=== PATIENT | female | born 2000 | race Two or more races ===

== ENCOUNTER 2025-02-28 06:45 | Inpatient (IN) | payer MEDICAID, OTHER ==
[~2025-02-28] VITALS: Ht 165.1 cm; Wt 83.9 kg
[2025-02-28] MEDS ORDERED: BUTORPHANOL TARTRATE 2 MG/1 ML VIAL IV PRN ×2 (07:30)
[2025-02-28] MEDS ORDERED: LIDOCAINE 2%HCL (LOCAL ANESTH.) INJ 20ML MDV IJ PRN (07:30)
[2025-02-28] MEDS ORDERED: ACETAMINOPHEN 325 MG TAB PO PRN ×2 (08:00→16:30)
[2025-02-28 08:11] LABS: Hemoglobin 12.3 g/dL (12.2-16.2); Nucleated Red Blood Cells % 0.0 %
[2025-02-28 08:13] LABS: Hematocrit 35.2 % (36.0-46.0); Mean Corpuscular Hemoglobin 34.5 pg (28.0-32.0); Mean Corpuscular Volume 98.4 fL (80.0-100.0)
--- NOTE | 2025-02-28 08:21 | DVH ---
LIMITED OB ULTRASOUND > 14 WKS: HISTORY: srom TECHNIQUE: Multiple real-time grayscale images of the gravid uterus with duplex Doppler color flow an d M-mode spectral analysis. TRANSDUCER: transabdominal FINDINGS: IUP single live fetus at 38 weeks 4 days based on composite averages of the BPD, head circumference, abdominal circumference and femur length Estimated weight 3657 grams heart rate 145 beats per minute SOMMER 5.9 cm Cervix not well visualized. Cephalic Presentation Anterior Placenta without previa or abruption. IMPRESSION: IUP single live fetus at 38 weeks 4 days AUA corresponding.
[2025-02-28 08:23] LABS: INR 0.91 (0.9-1.15); Partial Thromboplastin Time 25.9 SEC (24.5-34.5); Prothrombin Time 9.7 sec (9.3-11.8)
[2025-02-28 08:32] LABS: Alanine Aminotransferase 16 U/L (7-40); Albumin 3.6 g/dL (3.2-4.8); Anion Gap 11 (5-15); BUN/Creatinine Ratio 14.0 (10.0-20.0); Calcium 8.9 mg/dL (8.7-10.4); Carbon Dioxide 23 mmol/L (20-31); Chloride 106 mmol/L (98-107); Sodium 140 mmol/L (136-145); Total Protein 6.3 g/dL (5.7-8.2)
[2025-02-28 08:33] LABS: Barbiturate Scree,Urine Neg (NEGATIVE); Opiate Scree,Urine Neg (NEGATIVE); Phencyclidine Screen, Urine Neg (NEGATIVE)
[2025-02-28 08:33] LABS: Bilirubin, Total 0.4 mg/dL (0.2-1.0)
[2025-02-28 08:34] LABS: Alkaline Phosphatase 193 U/L (46-116); Blood Urea Nitrogen 8 mg/dL (9-23); Glucose 109 mg/dL (74-106); Potassium 3.4 mmol/L (3.5-5.1)
[2025-02-28 08:34] LABS: Amphetamine Screen, Urine Neg (NEGATIVE); Benzodiazephine Screen, Urine Neg (NEGATIVE); Cannabinoid Screen, Urine Neg (NEGATIVE); Cocaine Screen, Urine Neg (NEGATIVE)
[2025-02-28 08:36] LABS: Urine Protein, UAD TRACE (Negative); Urine WBC Clumps PRESENT /hpf (None Seen)
[2025-02-28] MEDS: PHISODERM TOP SOLN 240ML BTL TOP PRN (08:46)
[2025-02-28] MEDS: WITCH HAZEL-GLYCERIN PAD TOP PRN (08:46)
[2025-02-28] MEDS: DERMOPLAST 60ML BOTTLE TOP PRN (08:46)
[2025-02-28] MEDS: PENICILLIN G POT 5MIL/D5 50ML 50 ML IV ONE (08:48)
[2025-02-28] MEDS: LACTATED RINGER'S 1,000 ML IV SCH (08:48)
[2025-02-28] MEDS ORDERED: NALOXONE HCL 0.4 MG/ML VIAL IV ONE (09:30)
--- NOTE | 2025-02-28 12:06 | DVHHP2 ---
OB CC & HPI Date Date of Admission: Feb 28, 2025 Patient Identification: : 1 Para: 0 EDC: Mar 01, 2025 EGA: 39 6/7 Chief Complaints: Reason for admission: active labor Other reason for admission: Labor ruptured membranes came from [place] yesterday no care records Admission Nurse Assessment Rev: Yes Past Medical History Cardiac: No pertinent Hx Pulmonary: No pertinent Hx Central Nervous System: No pertinent Hx GI: No pertinent Hx Hemotology/Oncology: No pertinent Hx Hepatobiliary: No pertinent Hx Psychiatric: No pertinent Hx Musculoskeletal: No pertinent Hx Rheumotologic: No pertinent Hx Infectious Disease: No peritnent Hx ENT: No pertinent Hx Renal/: No pertinent Hx Endocrine: No pertinent Hx Dermatology: No pertinent Hx OB History OB History Care: None Ultrasounds: No ultrasounds Obstetrical Complications: None Medical Complications: None Allergies: Coded Allergies: NO KNOWN ALLERGIES (Unverified , 02/28/25) Current Medications Current Medications Medications (Trade) Dose Ordered Sig/Shavon Route PRN Reason Start Time Stop Time Status Last Admin Lactated Ringer's 1,000 ml @ 125 mls/hr Q8H IV 02/28/25 07:30 02/28/25 10:06 Witch Cortney (Tucks) 1 pad PRN PRN TOP PERINEAL AREA DISCOMFORT 02/28/25 07:30 02/28/25 08:46 Sodium Lauryl Sulfate (Phisoderm) 240 ml PRN PRN TOP PERINEAL AREA DISCOMFORT 02/28/25 07:30 02/28/25 08:46 Benzocaine (Dermoplast) 1 applic PRN PRN TOP PERINEAL AREA DISCOMFORT 02/28/25 07:30 02/28/25 08:46 Butorphanol Tartrate (Stadol Injection) 1 mg Q4HPRN PRN IV MODERATE PAIN (4-6 PAIN SCALE) 02/28/25 07:30 Hold Butorphanol Tartrate (Stadol Injection) 2 mg Q4HPRN PRN IV SEVERE PAIN (7-10 PAIN SCALE) 02/28/25 07:30 Lidocaine HCl (Xylocaine) 20 ml ONCE PRN IJ PERINEAL AREA DISCOMFORT 02/28/25 07:30 Acetaminophen (Tylenol Tablet) 650 mg Q4HP PRN PO MODERATE PAIN (4-6 PAIN SCALE) 02/28/25 08:00 Penicillin G Potassium [id number] units/Dextrose 50 ml @ 100 mls/hr Q4H IV 02/28/25 12:30 Family & Social History Family/Social History Blood Type: A+ Rubella: immune RPR/VDRL: Unknown GBS Status: Unknown HBsAG: Unknown Review of Systems Constitutional: No symptom reported Ears, Nose, & Throat: No symptom reported Eyes: No symptom reported Pulmonary/Respiratory: No symptom reported Cardiovascular: No symptom reported Gastrointestinal: No symptom reported Genitourinary: No symptom reported Musculoskeletal: No symptom reported Skin: No symptom reported Psychiatric: No symptom reported Endocrine: No symptom reported Hemotologic/Lymphatic: No symptom reported OB Admission Exam Physical Exam HEENT: TMs Normal, Fontanelles Normal, Nasal Mucosa Normal, Eyes non-injected, Oropharynx Normal, PERRLA, Moist Membranes, EOMI Heart: Rhythm Normal Lungs: Clear Abdomen: Non tender Extremities: Normal Reflexes: Normal Cervical Dilatation: 8cm Effacement: 100% Membranes: Ruptured Amniotic Fluid: Clear Heart Rate: 130's Accelerations: Accelerations Present Decelerations: No Decelerations Short Term Variability: Present Seed Sales Manager Variability: Average (6-25) Contractions on Admission: < 5 Minutes Apart Intensity: Moderate OB Plan Plan Admitting Diagnosis: SROM 39 + weeks , New from [place] 02/27 Plan: Expectant Management LA GOTTLIEB DO Feb 28, 2025 12:06
--- NOTE | 2025-02-28 12:09 | LDN2 ---
Labor and Delivery Note Date 02/28/25 Age 25 1 Para 0 AB 0 EDC 03/01/2025 EGA 39+ Diagnosis SROM active labor Vaginal Delivery: VTX Vacuum Assisted: No Placenta: Spontaneous Sex: Male Weight pending Apgars 01/29 Nuchal Cord Transected: No Amniotic Fluid: Clear Anesthesia Epidural Episiotomy: No (1st degree ant and posterior vagina) Extension: Yes Repaired with 2-0 Chromic EBL 300cc Labs Laboratory Tests 02/28/25 07:42: Hepatitis B Surface Antigen Negative, HIV (1&2) Antibody Negative, Rubella Antibody Positive Blood Bank 02/28/25 07:42: Blood Type A POSITIVE Complications none Conditions stable Blocker And Sewer none present Visit Coding OBGYN Date of Service: Feb 28, 2025 Billing Provider: LA GOTTLIEB DO DIRECTOR OF HOUSING Common Visit Codes: 05599-[id number] OBS CARE (HIGH) DIRECTOR OF HOUSING Procedure Codes: 77973-NYY DEL INCLUDING LA GOTTLIEB DO Feb 28, 2025 12:09
[2025-02-28] MEDS ORDERED: PENICILLIN G POTASSIUM 2,500,000 UNITS in D5W 5% 50 ML IV SCH (12:30)
[2025-02-28] MEDS ORDERED: ONDANSETRON ODT 4 MG TAB PO PRN (16:30)
[2025-02-28 18:45] VITALS: BP 112/65; PULSE 83; RESP 16; TEMP 99
[2025-02-28] MEDS: ROPIVACAINE HCL 100 ML ONE (19:02)
[2025-02-28] MEDS: LACT. RINGERS/OXYTOCIN 20UNITS 1,000 ML IV ONE (19:04)
[2025-02-28] MEDS: LIDOCAINE 2%HCL (LOCAL ANESTH.) INJ 20ML MDV ONE (19:04)
[2025-02-28] MEDS: LACT. RINGERS/OXYTOCIN 20UNITS 500 ML IV ONE ×2 (19:21→19:22)
[2025-02-28] MEDS: LIDOCAINE HCL 2 %PF INJ 10ML AMP IJ ONE (19:42)
[2025-02-28 23:00] VITALS: BP 118/72; PULSE 74; RESP 18; TEMP 98.7
[2025-03-01] MEDS: IBUPROFEN 600 MG TAB PO PRN (02:30)
[2025-03-01 02:31] VITALS: BP 106/59; PULSE 67; RESP 16; TEMP 97.8
--- NOTE | 2025-03-01 05:29 | DVHPN2 ---
Chief Complaints Patient reports: No new complaints, Feels better Nursing reports: No new complaints, No abdominal pain, No chest pain, No dizziness, No cough Objective Vitals Vital Signs Date Time Temp Pulse Resp B/P (MAP) Pulse Ox O2 Delivery O2 Flow Rate FiO2 03/01/25 02:31 97.8 67 16 106/59 (75) 97.8 02/28/25 18:45 Room Air Medications Current Medications Medications (Trade) Dose Ordered Sig/Shavon Route PRN Reason Start Time Stop Time Status Last Admin Acetaminophen (Tylenol Tablet) 650 mg Q4HP PRN PO MILD PAIN (1-3 PAIN SCALE) 02/28/25 16:30 Benzocaine (Dermoplast) 1 applic PRN PRN TOP PERINEAL AREA DISCOMFORT 02/28/25 07:30 02/28/25 08:46 Ibuprofen (Motrin Tablet) 600 mg Q6HP PRN PO MODERATE PAIN (4-6 PAIN SCALE) 02/28/25 16:30 03/01/25 02:30 Lactated Ringer's 1,000 ml @ 125 mls/hr Q8H IV 02/28/25 07:30 02/28/25 10:06 Lidocaine HCl (Xylocaine) 20 ml ONCE PRN IJ PERINEAL AREA DISCOMFORT 02/28/25 07:30 Ondansetron HCl (Zofran Po) 4 mg Q4HPRN PRN PO NAUSEA / VOMITING 02/28/25 16:30 Sodium Lauryl Sulfate (Phisoderm) 240 ml PRN PRN TOP PERINEAL AREA DISCOMFORT 02/28/25 07:30 02/28/25 08:46 Witch Cortney (Tucks) 1 pad PRN PRN TOP PERINEAL AREA DISCOMFORT 02/28/25 07:30 02/28/25 08:46 General: Normal Neck: Normal Lungs: Normal Cardiovascular: Normal Abdominal: Normal (uterus firm 12 week size) Musculoskeletal: Normal Extremities: Normal Skin: Normal Neurological: Normal Studies Laboratory Tests 02/28/25 07:42 Test 02/28/25 07:42 Range/Units Serum Glucose 109 H 74-106 mg/dL Ass/Plan Assessment PPD #1 stable improved Plan advance care LA GOTTLIEB DO Mar 01, 2025 05:29
[2025-03-01 07:17] VITALS: BP 101/56; PULSE 67; RESP 16; TEMP 97.9; O2SAT 97
[2025-03-01 11:02] VITALS: BP 107/59; PULSE 80; RESP 16; TEMP 98.3; O2SAT 97
[2025-03-01 15:17] VITALS: BP 108/57; PULSE 73; RESP 16; TEMP 98.6; O2SAT 98
[2025-03-01 18:53] VITALS: BP 119/59; PULSE 77; RESP 16; TEMP 98.5; O2SAT 98
[2025-03-01 23:08] VITALS: BP 107/58; PULSE 62; RESP 16; TEMP 98.5; O2SAT 98
[2025-03-02 03:26] VITALS: BP 99/57; PULSE 68; RESP 16; TEMP 98.5; O2SAT 98
--- NOTE | 2025-03-02 03:46 | DVHDS2 ---
Obstetrics Discharge Summary Obstetrics Discharge Summary Date of Admission: Feb 28, 2025 Date of Discharge: Mar 02, 2025 Reason For Admission: Onset of Labor Procedures: None Intrapartum Procedures: Spontaneous vaginal deliv Procedures: None Operative Complicat: Laceration (Perineal) Discharge Diagnosis: Term -Delivered Discharge Information: Activity (Pelvic rest), Diet (Regular), Medications (Motrin, Colace, vits), Instructions (Routine), Discharge to (Home) Visit Coding OBGYN Date of Service: Mar 02, 2025 Billing Provider: FELIBERTO ORTIZ CNM PANEL MONITOR Common Visit Codes: 24641-CLL/OBS DISCH DAY <30MIN PANEL MONITOR Procedure Codes: 21647-CTT DEL INCLUDING FELIBERTO ORTIZ CNM Mar 02, 2025 03:46
--- NOTE | 2025-03-02 03:51 | DVHPN2 ---
Chief Complaints Patient reports: No new complaints (Coping well. Ambulates and voids freely. Breast feeds well. Denies blues. Desires to go home) Nursing reports: No new complaints Objective Vitals Vital Signs Date Time Temp Pulse Resp B/P (MAP) Pulse Ox O2 Delivery O2 Flow Rate FiO2 03/02/25 03:26 98.5 68 16 99/57 (71) 98 98.5 03/01/25 19:02 Room Air General: Normal Neck: Normal Lungs: Normal, Normal breath sounds, Lungs clear Cardiovascular: Normal, Regular rate and rhythm Abdominal: Normal (Fundus firm, 2fb below umbilicus) Musculoskeletal: Normal Extremities: Normal Skin: Normal Others Breasts soft, nipples intact Perineum without edema, lochia minimal, no odor Studies Laboratory Tests 02/28/25 07:42 Test 02/28/25 07:42 Range/Units Serum Glucose 109 H 74-106 mg/dL Ass/Plan Assessment 2nd PP day Desires to go home Plan D/c home with instructions RTC 2 weeks and PRN FELIBERTO ORTIZ CNM Mar 02, 2025 03:50
[2025-03-02 07:30] VITALS: BP 111/60; PULSE 70; RESP 16; TEMP 98.4; O2SAT 98
== END 2025-03-02 12:31 | disposition home or self-care (01) | DRG 560 ==
LOC: LDRP 06:45 → OBSVTOIN 07:20 → LDRP 07:25
PROVIDERS: ADMIT Obstetrics & Gynecology; ATTEND Obstetrics & Gynecology
PROC: 10E0XZZ Delivery of Products of Conception, External Approach (ICD-10-PCS; principal; 2025-02-28)
PROC: 0HQ9XZZ Repair Perineum Skin, External Approach (ICD-10-PCS; 2025-02-28)
PROC: 0UQGXZZ Repair Vagina, External Approach (ICD-10-PCS; 2025-02-28)
PROC: 3E0R3BZ Introduction of Anesthetic Agent into Spinal Canal, Percutaneous Approach (ICD-10-PCS; 2025-02-28)
PROC: 00HU33Z Insertion of Infusion Device into Spinal Canal, Percutaneous Approach (ICD-10-PCS; 2025-02-28)
DX: O70.0 First degree perineal laceration during delivery (principal); Z37.0 Single live birth; Z3A.39 39 weeks gestation of pregnancy
CPT/HCPCS: 36415; 59025; 59409; 62282; 76805; 80053; 80307; 81001; 81002; 85025; 85610; 85730; 86703; 86762; 86780; 86803; 86850; 86900; 86901; 87340; 94760; 94762; 96360; 96361; 96365; 96366; G0378; J2540; J2590; J7060